=== PATIENT | female | born 1975 | race Caucasian/White ===

== ENCOUNTER 2025-03-20 15:34 | Outpatient (CLI) | payer OTHER, SELFPAY ==
[2025-03-24 07:00] LABS: HPV Source Cervix
== END 2025-03-20 15:35 | disposition home or self-care (01) ==
PROVIDERS: Visit Provider Physician Assistant
DX: Z12.4 Encounter for screening for malignant neoplasm of cervix (principal); Z11.51 Encounter for screening for human papillomavirus (HPV)
CPT/HCPCS: 87624; 87625; 88141; 88142

== ENCOUNTER 2025-05-01 10:40 | Outpatient (CLI) | payer OTHER, SELFPAY ==
--- NOTE | 2025-05-01 10:45 | CRLHL7_ITS ---
For Patients: As a result of the Century Cures Act, medical imaging exams and procedure reports are released immediately into your electronic medical record. You may view this report before your referring provider. If you have questions, please contact your health care provider. DIGITAL DIAGNOSTIC BILATERAL MAMMOGRAM USING TOMOSYNTHESIS AND COMPUTER-AIDED DETECTION LEFT BREAST ULTRASOUND CLINICAL HISTORY: LEFT breast lump. COMPARISON: Ultrasound 02/10/2014 TECHNIQUE: Digital BILATERAL mammogram in four projections with computer-aided detection. Tomosynthesis was used in this interpretation. Real-time ultrasound imaging of LEFT breast with imaging documentation. BREAST COMPOSITION: The breasts are extremely dense, which lowers the sensitivity of mammography. FINDINGS: 3D CC/MLO BILATERAL mammogram images submitted. Nodular density is present within the LEFT breast corresponding to the area of concern. No architectural distortion. No suspicious calcifications. Targeted LEFT breast ultrasound performed. At 1 o`clock 3 cm from the nipple, there is a simple circumscribed anechoic cyst which measures 2.5 x 1.6 x 3.0 cm. Additional simple cyst is present at 11 o`clock 4 cm from the nipple measuring 1.5 x 0.7 x 2.6 cm. IMPRESSION: Simple cysts are present LEFT breast measuring up to 3.0 cm. No evidence of malignancy. RECOMMENDATIONS: Routine screening mammography. A lay language report of this examination will be provided to the patient. BI-RADS Category 2: Benign Dictated by Juan Rios MD @ 05/01/2025 12:22:24 PM jj/Dictated by: Juan Rios MD @ 05/01/2025 12:22:00 PM (Electronically Signed)
--- NOTE | 2025-05-01 11:15 | CRLHL7_ITS ---
For Patients: As a result of the Cures Act, medical imaging exams and procedure reports are released immediately into your electronic medical record. You may view this report before your referring provider. If you have questions, please contact your health care provider. SEE DIGITAL DIAGNOSTIC BILATERAL MAMMOGRAM PERFORMED SAME DAY CRL:dameon xiao/Dictated by: Juan Rios MD @ 05/01/2025 12:22:00 PM (Electronically Signed)
== END 2025-05-01 10:41 | disposition home or self-care (01) ==
LOC: MAMMO 10:40
PROVIDERS: Visit Provider Physician Assistant
DX: N63.20 Unspecified lump in the left breast, unspecified quadrant (principal)
CPT/HCPCS: 76642; 77066; G0279